=== PATIENT | female | born 1985 | race Hispanic/Latino ===

== ENCOUNTER 2018-02-19 00:26 | Emergency (ER) | payer BC ==
[2018-02-19 01:09] LABS: Urine Blood TRACE (NEG); Urine Glucose NEGATIVE (NEG); Urine Protein TRACE (NEG); Urine Specific Gravity 1.015 (1.005-1.030); Urine pH 8.5 (5.0-7.0)
[2018-02-19 01:09] LABS: Urine Specific Gravity 1.015 (1.005-1.030)
[2018-02-19 01:50] LABS: Absolute Lymphocytes (CBC) 3.5 K/uL (0.7-4.9); Absolute Monocytes 0.7 K/uL (0.1-1.3); Absolute Neutrophil 5.8 K/uL (1.8-8.0); Basophils % 0.7 % (0-1.3); Eosinophils % 0.5 % (0-4.4); Hematocrit 36.7 % (36.0-45.0); Lymphocytes % 34.4 % (15.3-44.8); MCH 33.2 pg (27.0-35.0); MCV 96.3 fL (80-100); MPV 7.5 fL (7.6-11.3); Monocytes % 6.6 % (3.3-12.3); RBC Red Blood Cell Count 3.81 M/uL (3.86-4.86)
[2018-02-19 02:05] LABS: ALT/SGPT 31 U/L (12-78); AST/SGOT 16 U/L (15-37); Albumin 3.8 g/dL (3.4-5.0); Alkaline Phosphatase 58 U/L (45-117); BUN Blood Urea Nitrogen 10 mg/dL (7-18); Bicarbonate 20 mmol/L (21-32); Bilirubin Direct < 0.1 mg/dL (0-0.2); Bilirubin Total 0.2 mg/dL (0.2-1.0); Glucose Level 117 mg/dL (74-106); Potassium 3.5 mmol/L (3.5-5.1); Protein, Total 7.3 g/dL (6.4-8.2); Sodium Level 141 mmol/L (136-145)
--- NOTE | 2018-02-19 02:23 | EDPHYS ---
Physician Documentation [facility] Name: Cristian Estrada Age: 33 yrs Sex: Female : 1985 Arrival Date: 02/19/2018 Time: 00:27 Bed 16 Private MD: Silvano Whitfield R ED Physician Terell Brown HPI: 02/19 02:10 This 33 yrs old Female presents to ER via Ambulatory with complaints of Chest pm1 Pain, Headache. 02:10 The patient or guardian reports chest pain that is located primarily in the mid-sternal pm1 area. The pain does not radiate. Associated signs and symptoms: Pertinent positives: headache, Pertinent negatives: abdominal pain, cough, nausea, shortness of breath, vomiting. The chest pain is described as aching. Duration: The patient or guardian reports a single episode, that lasted 7 hour(s). Modifying factors: The symptoms are alleviated by nothing. the symptoms are aggravated by cough, deep breath, palpation of area. The patient has not experienced similar symptoms in the past. The patient has not recently seen a physician, the patient's primary care provider is Dr. Whitfield. Patient with headache and chest pain on and off for the past 3 months. Chest pain today that has been going on for 7 hours. Patient's headache frontal location and is the same as her prior headaches. No fever. 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 - Social history:: Smoking status: Patient/guardian denies using tobacco. - Ebola Screening: : No symptoms or risks identified at this time. ROS: 02:10 Constitutional: Negative for fever, chills, and weight loss, Eyes: Negative for injury, pm1 pain, redness, and discharge, ENT: Negative for injury, pain, and discharge, Neck: Negative for injury, pain, and swelling, Respiratory: Negative for shortness of breath, cough, wheezing, and pleuritic chest pain. 02:10 Abdomen/GI: Negative for abdominal pain, nausea, vomiting, diarrhea, and constipation, Back: Negative for injury and pain, : Negative for injury, bleeding, discharge, and swelling, MS/Extremity: Negative for injury and deformity, Skin: Negative for injury, rash, and discoloration. 02:10 Cardiovascular: Positive for chest pain, Negative for edema, palpitations. 02:10 Neuro: Positive for headache. Exam: 02:10 Constitutional: This is a well developed, well nourished patient who is awake, alert, pm1 and in no acute distress. Head/Face: Normocephalic, atraumatic. Eyes: Pupils equal round and reactive to light, extra-ocular motions intact. Lids and lashes normal. Conjunctiva and sclera are non-icteric and not injected. Cornea within normal limits. Periorbital areas with no swelling, redness, or edema. ENT: Nares patent. No nasal discharge, no septal abnormalities noted. Tympanic membranes are normal and external auditory canals are clear. Oropharynx with no redness, swelling, or masses, exudates, or evidence of obstruction, uvula midline. Mucous membranes moist. Neck: Trachea midline, no thyromegaly or masses palpated, and no cervical lymphadenopathy. Supple, full range of motion without nuchal rigidity, or vertebral point tenderness. No Meningismus. Chest/axilla: Normal chest wall appearance and motion. Nontender with no deformity. No lesions are appreciated. Cardiovascular: Regular rate and rhythm with a normal S1 and S2. No gallops, murmurs, or rubs. Normal PMI, no JVD. No pulse deficits. Respiratory: Lungs have equal breath sounds bilaterally, clear to auscultation and percussion. No rales, rhonchi or wheezes noted. No increased work of breathing, no retractions or nasal flaring. Abdomen/GI: Soft, non-tender, with normal bowel sounds. No distension or tympany. No guarding or rebound. No evidence of tenderness throughout. Back: No spinal tenderness. No costovertebral tenderness. Full range of motion. Skin: Warm, dry with normal turgor. Normal color with no rashes, no lesions, and no evidence of cellulitis. MS/ Extremity: Pulses equal, no cyanosis. Neurovascular intact. Full, normal range of motion. 02:10 Neuro: Orientation: is normal, Mentation: is normal, Memory: is normal, Cranial nerves: CN II- XII are normal as tested, Cerebellar function: normal finger to nose testing, Motor: moves all fours, strength is normal, strength is 5/5 in all extremities, Sensation: is normal, no obvious gross deficits, Gait: is steady, at a normal pace, without difficulty. Vital Signs: 00:42 BP 123 / 82; Pulse 106; Resp 16; Temp 99.0(O); Pulse Ox 100% on R/A; Weight 72.57 kg ak1 (R); Height 5 ft. 2 in. (157.48 cm) (R); Pain 6/10; 01:40 BP 131 / 71; Pulse 86; Resp 16; Temp 99.0; Pulse Ox 100% on R/A; ak1 02:24 BP 114 / 72; Pulse 87; Resp 16; Temp 99.0; Pulse Ox 100% on R/A; Pain 3/10; ak1 00:42 Body Mass Index 29.26 (72.57 kg, 157.48 cm) ak1 MDM: 00:53 Patient medically screened. pm1 02:21 Data reviewed: vital signs. Data interpreted: Pulse oximetry: on room air is 100 %. pm1 Interpretation: normal. Counseling: I had a detailed discussion with the patient and/or guardian regarding: the historical points, exam findings, and any diagnostic results supporting the discharge/admit diagnosis, lab results, radiology results, the need for outpatient follow up, to return to the emergency department if symptoms worsen or persist or if there are any questions or concerns that arise at home. 02/19 00:45 Order name: Urine Dipstick--Ancillary (enter results); Complete Time: 02: oe 02/19 00:46 Order name: Urine --Ancillary (enter results); Complete Time: 02: oe 02/19 01:29 Order name: Basic Metabolic Panel; Complete Time: 02:08 pm02/19 01:29 Order name: CBC with Diff; Complete Time: 02:08 pm02/19 01:29 Order name: LFT's; Complete Time: 02:08 pm02/19 01:29 Order name: Troponin (emerg Dept Use Only); Complete Time: 02:08 pm02/19 01:29 Order name: XRAY Chest (1 view) pm1 02/19 01:29 Order name: EKG; Complete Time: 01:30 pm1 02/19 01:29 Order name: Cardiac monitoring; Complete Time: 01:32 pm02/19 01:29 Order name: EKG - Nurse/Tech; Complete Time: 01:39 pm1 02/19 01:29 Order name: IV Saline Lock; Complete Time: 01:39 pm02/19 01:29 Order name: Labs collected and sent; Complete Time: :39 pm1 02/19 01:29 Order name: O2 Per Protocol; Complete Time: :32 pm02/19 01:29 Order name: O2 Sat Monitoring; Complete Time: :32 pm1 Administered Medications: No medications were administered Disposition: 15:34 Co-signature as Attending Physician, Terell Brown MD I agree with the assessment and vicki plan of care. Disposition: 02/19/18 02:22 Discharged to Home. Impression: Chest pain, unspecified, Headache. - Condition is Stable. - Discharge Instructions: Nonspecific Chest Pain, General Headache Without Cause. - Medication Reconciliation Form, Thank You Letter form. - Follow up: Emergency Department; When: As needed; Reason: Worsening of condition. Follow up: Silvano Whitfield MD; When: 2 - 3 days; Reason: Recheck today's complaints, Continuance of care, Re-evaluation by your physician. - Problem is new. - Symptoms have improved. Signatures: Dispatcher [employer] EDMS Terell Brown MD MD cha Krenek, Amber, RN RN ak1 Len Torres, BRANCH OFFICE MANAGER BRANCH OFFICE MANAGER pm1 Corrections: (The following items were deleted from the chart) : 01:29 Urine Dipstick-Ancillary ordered. pm1 pm1 02:29 02:22 02/19/2018 02:22 Discharged to Home. Impression: Chest pain, unspecified; ak1 Headache. Condition is Stable. Forms are Medication Reconciliation Form, Thank You Letter, Antibiotic Education, Prescription Opioid Use. Follow up: Emergency Department; When: As needed; Reason: Worsening of condition. Follow up: Silvano Whitfield; When: 2 - 3 days; Reason: Recheck today's complaints, Continuance of care, Re-evaluation by your physician. Problem is new. Symptoms have improved. pm1
--- NOTE | 2018-02-19 02:23 | ER ---
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 pt currently taking doxycycline s/p LEEP procedure. Transition of care: patient was not received from another setting of care. Onset of symptoms is unknown. Risk Assessment: Do you want to hurt yourself or someone else? Patient reports no desire to harm self or others. Initial Sepsis Screen: Does the patient meet any 2 criteria? No. Patient's initial sepsis screen is negative. Does the patient have a suspected source of infection? No. Patient's initial sepsis screen is negative. Care prior to arrival: None. 00:40 Method Of Arrival: Ambulatory ak1 00:40 Acuity: HALLEY 4 ak1 Triage Assessment: 00:42 General: Appears in no apparent distress. uncomfortable, Behavior is cooperative, ak1 anxious. Pain: Complains of pain in headache, chest pain. EENT: No signs and/or symptoms were reported regarding the EENT system. Neuro: Level of Consciousness is awake, alert, obeys commands, Oriented to person, place, time, situation, Cannon Crewmember are equal bilaterally Moves all extremities. Gait is steady, Speech is normal, Facial symmetry appears normal, Pupils are PERRLA. 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 Respiratory: No deficits noted. GI: Abdomen is round Bowel sounds present X 4 quads. Abd is soft and non tender X 4 quads. : No signs and/or symptoms were reported regarding the genitourinary system. Derm: No signs and/or symptoms reported regarding the dermatologic system. Musculoskeletal: No signs and/or symptoms reported regarding the musculoskeletal system. 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 - Social history:: Smoking status: Patient/guardian denies using tobacco. - Ebola Screening: : No symptoms or risks identified at this time. Screenin:45 Abuse screen: Denies threats or abuse. Denies injuries from another. Nutritional ak1 screening: No deficits noted. Tuberculosis screening: No symptoms or risk factors identified. Fall Risk None identified. Assessment: 00:45 Pain: Pain does not radiate. 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 ak1 00:45 Reassessment: Patient appears in no apparent distress at this time. No changes from ak1 previously documented assessment. Patient is alert, oriented x 3, equal unlabored respirations, skin warm/dry/pink. see triage assessment. 02:06 Reassessment: Patient appears in no apparent distress at this time. No changes from ak1 previously documented assessment. Patient and/or family updated on plan of care and expected duration. Pain level reassessed. Patient is alert, oriented x 3, equal unlabored respirations, skin warm/dry/pink. Vital Signs: 00:42 BP 123 / 82; Pulse 106; Resp 16; Temp 99.0(O); Pulse Ox 100% on R/A; Weight 72.57 kg ak1 (R); Height 5 ft. 2 in. (157.48 cm) (R); Pain 6/10; 01:40 BP 131 / 71; Pulse 86; Resp 16; Temp 99.0; Pulse Ox 100% on R/A; ak1 02:24 BP 114 / 72; Pulse 87; Resp 16; Temp 99.0; Pulse Ox 100% on R/A; Pain 3/10; ak1 00:42 Body Mass Index 29.26 (72.57 kg, 157.48 cm) ak1 ED Course: 00:27 Patient arrived in ED. es 00:32 Silvano Whitfield MD is Private Physician. es 00:39 Yumi Jones, KIM is Primary Nurse. ak1 00:41 Len Torres NP is PHCP. pm1 00:41 Terell Brown MD is Attending Physician. pm1 00:41 Triage completed. ak1 00:42 Arm band placed on Patient placed in an exam room, on a stretcher, on pulse oximetry, ak1 Patient notified of wait time. 00:45 Patient has correct armband on for positive identification. Bed in low position. Call ak1 light in reach. Side rails up X2. Adult w/ patient. Pulse ox on. NIBP on. 00:45 Patient maintains SpO2 saturation greater than 95% on room air. ak1 00:45 Urine collected: clean catch specimen, cloudy. ak1 01:40 No provider procedures requiring assistance completed. Inserted saline lock: 20 gauge ak1 in left antecubital area, using aseptic technique. Blood collected. 01:41 Initial lab(s) drawn, by me, sent to lab. EKG done, by ED staff, reviewed by Len Torres NP. 01:45 X-ray completed. Portable x-ray completed in exam room. Patient tolerated procedure kw well. 01:46 XRAY Chest (1 view) In Process Unspecified. EDMS 02:21 Silvano Whitfield MD is Referral Physician. pm1 02:25 IV discontinued, intact, bleeding controlled, No redness/swelling at site. Pressure ak1 dressing applied. Administered Medications: No medications were administered Outcome: 02:22 Discharge ordered by . pm1 02:25 Discharged to home ambulatory, with friend. ak1 02:25 Condition: good 02:25 Discharge instructions given to patient, Instructed on discharge instructions, follow up and referral plans. Demonstrated understanding of instructions, follow-up care. 02:29 Patient left the ED. ak1 Signatures: Dispatcher [employer] Jovana Moss Kimberlee kw Krenek, Amber, RN RN Len Rosas, TIMOTHY SERVICE ENGINE REPAIRER pm1
--- NOTE | 2018-02-19 06:36 | EKG ---
Test Date: 2018-02-19 Test Time: 01:36:56 Mail Carrier: AMILCAR MEASUREMENT RESULTS: Intervals: Rate: 80 DE: 142 QRSD: 76 QT: 354 QTc: 408 [place]: P: 49 DE: 142 QRS: 27 T: 31 INTERPRETIVE STATEMENTS: Normal sinus rhythm with sinus arrhythmia Normal ECG Compared to ECG 09/08/2014 02:41:26 No significant changes Electronically Signed On 02-19-18 06:35:52 CDT by Per Pabon
--- NOTE | 2018-02-19 08:34 | RAD REPORT ---
EXAM DESCRIPTION: RAD - Chest Single View - 02/19/2018 1:46 am CLINICAL HISTORY: CHEST PAIN History of smoking COMPARISON: CHEST PA AND LAT 2 VIEW dated 09/08/2014 FINDINGS: Portable technique limits examination quality. The lungs are grossly clear. The heart is normal in size. No displaced fractures. IMPRESSION: No acute intrathoracic process suspected.
== END 2018-02-19 02:29 | disposition home or self-care (01) ==
LOC: ER 00:26
DX: R07.9 Chest pain, unspecified (principal); R51 Headache
CPT/HCPCS: 36415; 71045; 80048; 80076; 81003; 81025; 84484; 85025; 93005; 99284

== ENCOUNTER 2018-10-30 18:32 | Emergency (ER) | payer BC ==
--- OUTSIDE RECORDS SUMMARY | 2018-10-30 18:35 | XMS REPORT | Clinical Summary ---
:1985 Author Organization [facility] Address [address] [place] [id number] Care Team Providers Name Role Phone Asked, No Pcp Primary Care Provider Unavailable Allergies No Known Allergies Medications Medication Sig Dispensed Refills Start Date End Date Status ALPRAZolam (XANAX) Take 1 tablet 10 tablet 0 02/21/2018 03/03/2018 0.25 MG tablet (0.25 mg total) by mouth 3 (three) times a day as needed for anxiety for up to 10 days. omeprazole Take 1 capsule 30 capsule 0 02/21/2018 03/23/2018 (PriLOSEC) 20 MG (20 mg total) by capsule mouth daily for 30 days. Active Problems Not on file Encounters Date Type Specialty Care Team Description 02/27/2018 Intake Access N/A 02/21/2018 - Emergency Emergency Medicine RehrerAlonso Hypokalemia ( Primary Dx); 02/22/2018 DO Jarrett Paresthesia; Anxiety after 10/29/2017 Social History Tobacco Use Types Packs/Day Years Used Date Current Some Day Smoker Smokeless Tobacco: Never Used Comments: occassionally Alcohol Use Drinks/Week oz/Week Comments No occassionally Sex Assigned at Date Recorded Not on file Job Start Date Occupation Industry Not on file Not on file Not on file Travel History Travel Start Travel End No recent travel history available. Last Filed Vital Signs Vital Sign Reading Time Taken Blood Pressure 129/81 02/22/2018 3:39 AM CDT Pulse 98 02/22/2018 3:39 AM CDT Temperature 36.7 C (98 F) 02/22/2018 3:39 AM CDT Respiratory Rate 17 02/22/2018 3:39 AM CDT Oxygen Saturation 96% 02/22/2018 3:39 AM CDT Inhaled Oxygen Concentration - - Weight - - Height 157.5 cm (5' 2") 02/21/2018 6:45 PM CDT Body Mass Index - - Plan of Treatment Not on file Procedures Procedure Name Priority Date/Time Associated Comments Diagnosis ZZESTIMATED GFR STAT 02/21/2018 7:44 Results for this PM CDT procedure are in the results section. ALCOHOL LEVEL, BLOOD STAT 02/21/2018 7:44 Results for this PM CDT procedure are in the results section. THYROID STIMULATING STAT 02/21/2018 7:44 Results for this HORMONE PM CDT procedure are in the results section. T4, FREE STAT 02/21/2018 7:44 Results for this PM CDT procedure are in the results section. D-DIMER STAT 02/21/2018 7:44 Results for this PM CDT procedure are in the results section. B NATRIURETIC PEPTIDE STAT 02/21/2018 7:44 Results for this PM CDT procedure are in the results section. TROPONIN STAT 02/21/2018 7:44 Results for this PM CDT procedure are in the results section. CREATINE KINASE, TOTAL STAT 02/21/2018 7:44 Results for this (CPK) PM CDT procedure are in the results section. MAGNESIUM LEVEL STAT 02/21/2018 7:44 Results for this PM CDT procedure are in the results section. PHOSPHORUS LEVEL STAT 02/21/2018 7:44 Results for this PM CDT procedure are in the results section. BASIC METABOLIC PANEL STAT 02/21/2018 7:44 Results for this PM CDT procedure are in the results section. HC COMPLETE BLD COUNT STAT 02/21/2018 7:44 Results for this W/AUTO DIFF PM CDT procedure are in the results section. ECG ED PRELIMINARY Routine 02/21/2018 7:23 Results for this INTERPRETATION PM CDT procedure are in the results section. URINE DRUGS OF ABUSE STAT 02/21/2018 7:12 Results for this SCREEN PM CDT procedure are in the results section. HCG QUALITATIVE, URINE Routine 02/21/2018 7:12 Results for this SCREEN PM CDT procedure are in the results section. URINALYSIS SCREEN AND Routine 02/21/2018 7:12 Results for this MICROSCOPY, WITH REFLEX PM CDT procedure are in TO CULTURE the results section. URINE CULTURE Routine 02/21/2018 7:12 Results for this PM CDT procedure are in the results section. ECG 12-LEAD Routine 02/21/2018 6:49 Results for this PM CDT procedure are in the results section. after 10/29/2017 Results Estimated GFR (02/21/2018 7:44 PM CDT) GFR Non Af Amer >90 mL/min/1.73 m2 [facility] DEPARTMENT OF PATHOLOGY AND [facility] MEDICINE GFR Af Amer >90 mL/min/1.73 m2 [facility] DEPARTMENT OF Comment: PATHOLOGY AND GENOMIC Chronic kidney disease: <60 mL/min/1.73m2 MEDICINE Kidney failure: <15 mL/min/1.73m2 The estimated GFR is calculated from the IDMS-traceable Modification of Diet in Renal Disease Equation. The accuracy of the calculation is poor when the creatinine is normal. Calculated values >90 mL/min/1.73m2 are not reported. This equation has not been validated in children (<18 years), women, the elderly (>70 years), or ethnic groups other than Caucasians and Americans. Specimen Plasma specimen Performing Organization Address City/State/[facility] Phone Number [facility] DEPARTMENT OF PATHOLOGY AND [address] [place] [address] Troponin (02/21/2018 7:44 PM CDT) Troponin <0.30 0.00 - 0.30 ng/mL [facility] DEPARTMENT OF PATHOLOGY Comment: AND GENOMIC MEDICINE 0.30 - 1.49 ng/mlMay indicate increased risk of acute coronary syndrome. >=1.5 ng/mlConsistent with acute myocardial infarction. The diagnostic value of a single normal or non-diagnostic result is questionable.Serial samples at 2-6 hour intervals are required to rule out acute myocardial injury. Specimen Plasma specimen Performing Organization Address City/[facility] Phone Number [facility] DEPARTMENT OF PATHOLOGY AND [address] [place] [phone] [facility] D-dimer (02/21/2018 7:44 PM CDT) D-dimer <0.27 0.00 - 0.40 ug/mL FEU [facility] DEPARTMENT OF Comment: PATHOLOGY AND GENOMIC Units are ug/ml Fibrinogen Equivalent Unit. MEDICINE When combined with low clinical probability, D-dimer results of less than 0.5 ug/ml FEU have a good negativepredictive value in excluding PE or DVT. For D-dimer results greater than 0.5ug/ml FEU further testing is indicated if PE or DVT is suspectedclinically. Elevated D-dimer results have been reported in DVT, PE, and DIC cases and may indicate the presence of a clot. D-dimer results may be elevated due to old age, , inflammatory diseases, trauma, post-operative states, sepsis, and malignancies. Specimen Blood Performing Organization Address City/State/Zipcode Phone Number [facility] DEPARTMENT OF PATHOLOGY AND [address] [place] [address] GENOMIC MEDICINE CBC with platelet and differential (02/21/2018 7:44 PM CDT) WBC 8.71 4.50 - 11.00 k/uL [facility] DEPARTMENT OF PATHOLOGY AND GENOMIC MEDICINE RBC 3.81 (L) 4.20 - 5.50 m/uL [facility] DEPARTMENT OF PATHOLOGY AND GENOMIC MEDICINE HGB 12.8 12.0 - 16.0 g/dL [facility] DEPARTMENT OF PATHOLOGY AND GENOMIC MEDICINE HCT 35.9 (L) 37.0 - 47.0 % [facility] DEPARTMENT OF PATHOLOGY AND GENOMIC MEDICINE MCV 94.2 82.0 - 100.0 fL [facility] DEPARTMENT OF PATHOLOGY AND GENOMIC MEDICINE MCH 33.6 27.0 - 34.0 pg [facility] DEPARTMENT OF PATHOLOGY AND GENOMIC MEDICINE MCHC 35.7 31.0 - 37.0 g/dL [facility] DEPARTMENT OF PATHOLOGY AND GENOMIC MEDICINE RDW - SD 40.8 37.0 - 55.0 fL [facility] DEPARTMENT OF PATHOLOGY AND GENOMIC MEDICINE MPV 9.3 8.8 - 13.2 fL [facility] DEPARTMENT OF PATHOLOGY AND GENOMIC MEDICINE Platelet count 355 150 - 400 k/uL [facility] DEPARTMENT OF PATHOLOGY AND GENOMIC MEDICINE Nucleated RBC 0.00 /100 WBC [facility] DEPARTMENT OF PATHOLOGY AND GENOMIC MEDICINE Neutrophils 58.2 39.0 - 69.0 % [facility] DEPARTMENT OF PATHOLOGY AND GENOMIC MEDICINE Lymphocytes 31.7 25.0 - 45.0 % [facility] DEPARTMENT OF PATHOLOGY AND GENOMIC MEDICINE Monocytes 8.3 0.0 - 10.0 % [facility] DEPARTMENT OF PATHOLOGY AND GENOMIC MEDICINE Eosinophils 0.7 0.0 - 5.0 % [facility] DEPARTMENT OF PATHOLOGY AND GENOMIC MEDICINE Basophils 0.6 0.0 - 1.0 % [facility] DEPARTMENT OF PATHOLOGY AND GENOMIC MEDICINE Immature granulocytes 0.5Comment: 0.0 - 1.0 % [facility] DEPARTMENT OF "Immature PATHOLOGY AND GENOMIC granulocytes" MEDICINE (promyelocytes, myelocytes, metamyelocytes) Specimen Blood Performing Organization Address City/State/Zipcode Phone Number [facility] DEPARTMENT OF PATHOLOGY AND [address] [place], [place] [phone] [place] [address] Thyroid stimulating hormone (02/21/2018 7:44 PM CDT) TSH 1.09 0.27 - 4.20 uIU/mL [facility] DEPARTMENT OF PATHOLOGY AND GENOMIC MEDICINE Specimen Plasma specimen Performing Organization Address [facility] Phone Number [facility] DEPARTMENT OF PATHOLOGY AND [address] [place] [address] T4, free (02/21/2018 7:44 PM CDT) T4, free 1.3 0.9 - 1.7 ng/dL [facility] DEPARTMENT OF PATHOLOGY AND GENOMIC MEDICINE Specimen Plasma specimen Performing Organization Address City/[facility] Phone Number [facility] DEPARTMENT OF PATHOLOGY AND [address] [place] [address] Phosphorus level (02/21/2018 7:44 PM CDT) Phosphorus 2.4 2.4 - 4.5 mg/dL [facility] DEPARTMENT OF PATHOLOGY AND GENOMIC MEDICINE Specimen Plasma specimen Performing Organization Address [facility] Phone Number [facility] DEPARTMENT OF PATHOLOGY AND [address] [place] [address] B natriuretic peptide (02/21/2018 7:44 PM CDT) BNP 11 0 - 100 pg/mL [facility] DEPARTMENT OF PATHOLOGY AND GENOMIC MEDICINE Specimen Blood Performing Organization Address [facility] Phone Number [facility] DEPARTMENT OF PATHOLOGY AND [address] [place] [address] Magnesium level (02/21/2018 7:44 PM CDT) Magnesium 2.1 1.6 - 2.6 mg/dL [facility] DEPARTMENT OF PATHOLOGY AND GENOMIC MEDICINE Specimen Plasma specimen Performing Organization Address [facility] Phone Number [facility] DEPARTMENT OF PATHOLOGY AND [address] [place] [address] Creatine kinase, total (CPK) (02/21/2018 7:44 PM CDT) Creatine kinase 142 26 - 192 U/L [facility] DEPARTMENT OF PATHOLOGY AND GENOMIC MEDICINE Specimen Plasma specimen Performing Organization Address [facility] Phone Number [facility] DEPARTMENT OF PATHOLOGY AND [address] [place] [address] Alcohol level, blood (02/21/2018 7:44 PM CDT) Alcohol None Detected mg/dL [facility] DEPARTMENT OF PATHOLOGY Comment: AND GENOMIC MEDICINE Normal None Detected Legal Intoxication in [place]80 mg/dL (0.08%) - Whole Blood Toxic Mfqkntthnswcw539 mg/dL (0.2%) Potentially Tibca722 - 500 mg/dL (0.35 - 0.5%) Alcohol percent None Detected % [facility] DEPARTMENT OF PATHOLOGY AND GENOMIC MEDICINE Specimen Plasma specimen Performing Organization Address [facility] Phone Number [facility] DEPARTMENT OF PATHOLOGY AND [address] [place] [address] GENOMIC MEDICINE Basic metabolic panel (02/21/2018 7:44 PM CDT) Sodium 142 135 - 148 mEq/L [facility] DEPARTMENT OF PATHOLOGY AND GENOMIC MEDICINE Potassium 3.1 (L) 3.5 - 5.0 mEq/L [facility] DEPARTMENT OF PATHOLOGY AND GENOMIC MEDICINE Chloride 106 98 - 112 mEq/L [facility] DEPARTMENT OF PATHOLOGY AND GENOMIC MEDICINE CO2 21 (L) 24 - 31 mEq/L [facility] DEPARTMENT OF PATHOLOGY AND GENOMIC MEDICINE Anion gap 15@ANIO 7 - 15 mEq/L [facility] DEPARTMENT OF PATHOLOGY AND GENOMIC MEDICINE BUN 6 6 - 20 mg/dL [facility] DEPARTMENT OF PATHOLOGY AND GENOMIC MEDICINE Creatinine 0.7 0.5 - 0.9 mg/dL [facility] DEPARTMENT OF PATHOLOGY AND GENOMIC MEDICINE Glucose 99 65 - 99 mg/dL [facility] DEPARTMENT OF PATHOLOGY AND GENOMIC MEDICINE Calcium 9.4 8.3 - 10.2 mg/dL [facility] DEPARTMENT OF PATHOLOGY AND GENOMIC MEDICINE Specimen Plasma specimen Performing Organization Address [facility] Phone Number [facility] DEPARTMENT OF PATHOLOGY AND [address] [place], [place] [phone] GENOMIC MEDICINE ECG ED Preliminary Interpretation - NOT AN ORDER (02/21/2018 7:23 PM CDT) Narrative Performed At Alonso Nascimento DO 02/22/2018 11:56 PM ECG ED Preliminary Interpretation - Not an Order Performed by: ALONSO NASCIMENTO Authorized by: ALONSO NASCIMENTO ECG reviewed by ED Physician in the absence of a pathology laboratory aides teacher: yes Interpretation: Interpretation: normal Rate: ECG rate:80 ECG rate assessment: normal Rhythm: Rhythm: sinus rhythm QRS: QRS axis:Normal QRS intervals:Normal Conduction: Conduction: normal ST segments: ST segments:Normal T waves: T waves: normal Urinalysis screen and microscopy, with reflex to culture (02/21/2018 7:12 PM CDT) Specimen site Random void [facility] DEPARTMENT OF PATHOLOGY AND GENOMIC MEDICINE Color, UA Straw [facility] DEPARTMENT OF PATHOLOGY AND GENOMIC MEDICINE Appearance, UA Clear [facility] DEPARTMENT OF PATHOLOGY AND GENOMIC MEDICINE Specific gravity, UA 1.002 1.001 - 1.035 [facility] DEPARTMENT OF PATHOLOGY AND GENOMIC MEDICINE pH, UA 7.0 5.0 - 8.5 [facility] DEPARTMENT OF PATHOLOGY AND GENOMIC MEDICINE Protein, UA Negative Negative [facility] DEPARTMENT OF PATHOLOGY AND GENOMIC MEDICINE Glucose, UA Negative Negative [facility] DEPARTMENT OF PATHOLOGY AND GENOMIC MEDICINE Ketones, UA Negative Negative [facility] DEPARTMENT OF PATHOLOGY AND GENOMIC MEDICINE Bilirubin, UA Negative Negative [facility] DEPARTMENT OF PATHOLOGY AND GENOMIC MEDICINE Blood, UA Small (A) Negative [facility] DEPARTMENT OF PATHOLOGY AND GENOMIC MEDICINE Nitrite, UA Negative Negative [facility] DEPARTMENT OF PATHOLOGY AND GENOMIC MEDICINE Urobilinogen, UA <2.0 <2.0 [facility] DEPARTMENT OF PATHOLOGY AND GENOMIC MEDICINE Leukocyte esterase, UA Negative Negative [facility] DEPARTMENT OF PATHOLOGY AND GENOMIC MEDICINE Epithelial cells, UA 2 /HPF [facility] DEPARTMENT OF PATHOLOGY AND GENOMIC MEDICINE WBC, UA <1 0 - 4 /HPF [facility] DEPARTMENT OF PATHOLOGY AND GENOMIC MEDICINE RBC, UA 1 0 - 5 /HPF [facility] DEPARTMENT OF PATHOLOGY AND GENOMIC MEDICINE Bacteria, UA Few None seen [facility] DEPARTMENT OF PATHOLOGY AND GENOMIC MEDICINE Yeast, UA None seen [facility] DEPARTMENT OF PATHOLOGY AND GENOMIC MEDICINE Yeast with pseudohyphae, UA None seen [facility] DEPARTMENT OF PATHOLOGY AND GENOMIC MEDICINE Specimen Urine Performing Organization Address City/[facility] Phone Number [facility] DEPARTMENT OF PATHOLOGY AND [address] [place] [address] [facility] hCG qualitative, urine screen (02/21/2018 7:12 PM CDT) hCG qualitative, urine NegativeComment: [facility] DEPARTMENT OF Sensitivity of HCG test: 25 PATHOLOGY AND GENOMIC mIU/mL MEDICINE Specimen Urine Performing Organization Address City/[facility]/Zipcode Phone Number [facility] DEPARTMENT OF PATHOLOGY AND [address] [place] [phone] [facility] Urine drugs of abuse screen (02/21/2018 7:12 PM CDT) Amphetamine screen, urine Negative [facility] DEPARTMENT OF PATHOLOGY AND GENOMIC MEDICINE Barbiturate screen, urine Negative [facility] DEPARTMENT OF PATHOLOGY AND GENOMIC MEDICINE Benzodiazepine screen, Negative [facility] DEPARTMENT OF urine PATHOLOGY AND GENOMIC MEDICINE Cannabinoid screen, urine Negative [facility] DEPARTMENT OF PATHOLOGY AND GENOMIC MEDICINE Cocaine screen, urine Negative [facility] DEPARTMENT OF PATHOLOGY AND GENOMIC MEDICINE Methadone metabolite Negative [facility] DEPARTMENT OF (EDDP), urine PATHOLOGY AND GENOMIC MEDICINE Opiates screen, urine Negative [facility] DEPARTMENT OF PATHOLOGY AND GENOMIC MEDICINE Oxycodone screen, urine Negative [facility] DEPARTMENT OF PATHOLOGY AND GENOMIC MEDICINE Phencyclidine screen, urine Negative [facility] DEPARTMENT OF PATHOLOGY AND GENOMIC MEDICINE Tricyclic screen, urine Negative [facility] DEPARTMENT OF Comment: PATHOLOGY AND GENOMIC Drug screen minimum concentration of detectability MEDICINE [id number] ng/mL Barbiturates 200 ng/mL Ofjalnydnpnpasx917 ng/mL Fqwbkyg335 ng/mL Yxyovzzym780 ng/mL Syfqoyj078 ng/mL Wktzzwlla238 ng/mL Phencyclidine 25 ng/mL Rajjdhvnefwb99 ng/mL Fyyanntddn5953 ng/mL Negative test results indicates presumptive evidence of lack of clinically significant drug concentration in this urine specimen. Positive test results are presumptive evidence of clinically significant drug concentration in this urine specimen. Testing performed for medical purposes only. Specimen Urine Performing Organization Address [facility] Phone Number [facility] DEPARTMENT OF PATHOLOGY AND [address] [place] [address] MEDICINE Urine culture (02/21/2018 7:12 PM CDT) Urine culture SEE COMMENTComment: Bacteriuria [facility] DEPARTMENT OF PATHOLOGY screen negative. AND GENOMIC MEDICINE Performing Organization Address [facility] Phone Number [facility] DEPARTMENT OF PATHOLOGY AND [address] [place], [place] [phone] [facility] ECG 12 lead (02/21/2018 6:49 PM CDT) Ventricular rate 80 [facility] Atrial rate 80 [facility] TX interval 122 [facility] QRSD interval 72 [facility] QT interval 364 [facility] QTC interval 419 [facility] MUSE P axis 1 37 [facility] MUSE QRS axis 1 36 [facility] T wave axis 13 [facility] MUSE EKG impression Normal sinus rhythm-Normal ECG-No previous [facility] MUSE ECGs available- Performing Organization Address [facility] Phone Number [facility] MUSE [address] [place] [address] after 10/29/2017 Insurance Payer Benefit Plan / Group Subscriber ID Type Phone Address BCBS BCBS CHOICE PPO/[employer] PPO xxxxxxxxxxxxxxx PPO Advance Directives Patient has advance care planning documents on file. For more information, please contact:Torres Borden[address] [place] [id number]
[2018-10-30] MEDS ORDERED: NA CHLORIDE 0.9% 1,000 ML ONE (19:32)
[2018-10-30 19:46] LABS: Urine Specific Gravity >1.030 (1.005-1.030)
[2018-10-30 19:49] LABS: Urine Appearance CLEAR; Urine Blood TRACE (NEG); Urine Color DK YELLOW; Urine Glucose NEGATIVE (NEG); Urine Protein TRACE (NEG); Urine Specific Gravity >=1.030 (1.005-1.030); Urine Urobilinogen 0.2 mg/dL (0.2-1.0)
[2018-10-30 19:55] LABS: Urine Bilirubin NEGATIVE (NEG); Urine Microscopic Reflex ORDER UMIC
[2018-10-30 19:58] LABS: Absolute Lymphocytes (CBC) 1.2 K/uL (0.7-4.9); Absolute Monocytes 0.7 K/uL (0.1-1.3); Basophils % 0.2 % (0-1.3); Eosinophils % 1.1 % (0-4.4); Hematocrit 41.8 % (36.0-45.0); Lymphocytes % 8.4 % (15.3-44.8); MPV 7.7 fL (7.6-11.3); Monocytes % 5.2 % (3.3-12.3); RBC Red Blood Cell Count 4.35 M/uL (3.86-4.86)
[2018-10-30 20:03] LABS: Albumin 4.4 g/dL (3.4-5.0); Bilirubin Direct 0.3 mg/dL (0-0.2); Potassium 3.7 mmol/L (3.5-5.1); Protein, Total 7.9 g/dL (6.4-8.2)
[2018-10-30 20:04] LABS: Urine Bacteria 20-50 /HPF (<20); Urine RBC <5 /HPF (NONE SEEN)
[2018-10-30 20:05] LABS: Urine Culture Reflex Order REFLEXED; Urine Mucus SLIGHT /HPF (NONE SEEN)
--- NOTE | 2018-10-30 20:36 | RAD REPORT ---
EXAM DESCRIPTION: CTAbdomen Pelvis W Contrast - 10/30/2018 8:21 pm CLINICAL HISTORY: Abdominal pain. ABD PAIN COMPARISON: No comparisons TECHNIQUE: Biphasic CT imaging of the abdomen and pelvis was performed with 100 ml non-ionic IV cont rast. All CT scans are performed using dose optimization technique as appropriate and may include automated exposure control or mA/KV adjustment according to patient size. FINDINGS: The lung bases are clear. Cholecystectomy clips. The liver, spleen, pancreas, adrenal glands and kidneys are within normal limits. No bowel obstruction, free air, free fluid or abscess. The appendix is normal. No evidence of signi ficant lymphadenopathy. No suspicious bony findings. IMPRESSION: No acute intra-abdominal or pelvic finding.
[2018-10-30] MEDS ORDERED: MORPHINE 4 MG/ML SYR ONE ×2 (20:42→23:47)
[2018-10-30] MEDS ORDERED: ONDANSETRON 4 MG/2 ML VIAL ONE ×2 (20:43→23:47)
[2018-10-30] MEDS ORDERED: DICYCLOMINE HCL 20 MG/2 ML AMP IM ONE (21:10)
[2018-10-30 21:29] LABS: Blood Morphology Comment NOT SEEN (NOT SEEN); Platelet Estimate ADEQ; Urine White Blood Cell Casts OK
--- NOTE | 2018-10-30 23:37 | EDPHYS ---
Physician Documentation [facility] Name: Cristian Estrada Age: 33 yrs Sex: Female : 1985 Arrival Date: 10/30/2018 Time: 18:35 Bed 26 Private MD: Silvano Whitfield R ED Physician Herve Benavidez HPI: 10/30 23:34 This 33 yrs old Female presents to ER via Ambulatory with complaints of nh Abdominal Pain. 23:34 The patient presents with abdominal pain that is diffuse. Onset: The symptoms/episode nh began/occurred this morning. The symptoms do not radiate. Associated signs and symptoms: Pertinent positives: nausea and vomiting. The symptoms are described as crampy. Modifying factors: The symptoms are alleviated by nothing, the symptoms are aggravated by nothing. Severity of pain: At its worst the pain was moderate just prior to arrival. The patient has not experienced similar symptoms in the past. The patient has not recently seen a physician. 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 - Social history:: Smoking status: Patient/guardian denies using tobacco, Patient/guardian denies using alcohol. - Ebola Screening: : Patient negative for fever greater than or equal to 101.5 degrees Fahrenheit, and additional compatible Ebola Virus Disease symptoms Patient denies exposure to infectious person Patient denies travel to an Ebola-affected area in the 21 days before illness onset. ROS: 23:34 Constitutional: Negative for fever, chills, and weight loss, Eyes: Negative for injury, nh pain, redness, and discharge, ENT: Negative for injury, pain, and discharge, Neck: Negative for injury, pain, and swelling, Cardiovascular: Negative for chest pain, palpitations, and edema, Respiratory: Negative for shortness of breath, cough, wheezing, and pleuritic chest pain, Back: Negative for injury and pain, : Negative for injury, bleeding, discharge, and swelling, MS/Extremity: Negative for injury and deformity, Skin: Negative for injury, rash, and discoloration, Neuro: Negative for headache, weakness, numbness, tingling, and seizure. 23:34 Abdomen/GI: Positive for abdominal pain, nausea and vomiting. Exam: 23:34 Constitutional: This is a well developed, well nourished patient who is awake, alert, nh and in no acute distress. Head/Face: Normocephalic, atraumatic. Eyes: Pupils equal round and reactive to light, extra-ocular motions intact. Lids and lashes normal. Conjunctiva and sclera are non-icteric and not injected. Cornea within normal limits. Periorbital areas with no swelling, redness, or edema. ENT: Nares patent. No nasal discharge, no septal abnormalities noted. Tympanic membranes are normal and external auditory canals are clear. Oropharynx with no redness, swelling, or masses, exudates, or evidence of obstruction, uvula midline. Mucous membranes moist. Neck: Trachea midline, no thyromegaly or masses palpated, and no cervical lymphadenopathy. Supple, full range of motion without nuchal rigidity, or vertebral point tenderness. No Meningismus. Chest/axilla: Normal chest wall appearance and motion. Nontender with no deformity. No lesions are appreciated. Cardiovascular: Regular rate and rhythm with a normal S1 and S2. No gallops, murmurs, or rubs. Normal PMI, no JVD. No pulse deficits. Respiratory: Lungs have equal breath sounds bilaterally, clear to auscultation and percussion. No rales, rhonchi or wheezes noted. No increased work of breathing, no retractions or nasal flaring. Back: No spinal tenderness. No costovertebral tenderness. Full range of motion. Skin: Warm, dry with normal turgor. Normal color with no rashes, no lesions, and no evidence of cellulitis. MS/ Extremity: Pulses equal, no cyanosis. Neurovascular intact. Full, normal range of motion. Neuro: Awake and alert, GCS 15, oriented to person, place, time, and situation. Cranial nerves II-XII grossly intact. Motor strength 5/5 in all extremities. Sensory grossly intact. Cerebellar exam normal. Normal gait. Psych: Awake, alert, with orientation to person, place and time. Behavior, mood, and affect are within normal limits. 23:34 Abdomen/GI: Inspection: abdomen appears normal, Bowel sounds: normal, Palpation: moderate abdominal tenderness, in all quadrants. Vital Signs: 18:39 BP 110 / 73; Pulse 88; Resp 18; Temp 98.1(O); Pulse Ox 100% on R/A; Weight 90.72 kg; hj Height 5 ft. 2 in. (157.48 cm); Pain 8/10; 21:00 BP 115 / 78; Pulse 80; Resp 18; Pulse Ox 100% on R/A; Pain 8/10; mg2 22:58 BP 110 / 74; Pulse 82; Resp 18; Pulse Ox 100% on R/A; Pain 3/10; mg2 23:51 BP 112 / 78; Pulse 80; Resp 18; Pulse Ox 100% on R/A; Pain 2/10; mg2 18:39 Body Mass Index 36.58 (90.72 kg, 157.48 cm) hj MDM: 19:05 Patient medically screened. nh 23:34 Data reviewed: vital signs, nurses notes, lab test result(s), radiologic studies, I nh have discussed the patient's presentation/case with the attending Emergency Department Physician; and as a result, I will discharge patient. Counseling: I had a detailed discussion with the patient and/or guardian regarding: the historical points, exam findings, and any diagnostic results supporting the discharge/admit diagnosis, lab results, radiology results, the need for outpatient follow up, to return to the emergency department if symptoms worsen or persist or if there are any questions or concerns that arise at home. Response to treatment: the patient's symptoms have markedly improved after treatment. 10/30 19:14 Order name: Basic Metabolic Panel; Complete Time: 20:41 al 10/30 19:14 Order name: CBC with Diff al 10/30 19:14 Order name: Creatinine for Radiology; Complete Time: 20:41 al 10/30 19:14 Order name: Hepatic Function; Complete Time: 20:41 al 10/30 19:14 Order name: Lipase; Complete Time: 20:41 al 10/30 19:14 Order name: UA; Complete Time: 20:41 al 10/30 19:14 Order name: CT Abd/Pelvis - W/Contrast; Complete Time: 20:41 al 10/30 19:33 Order name: Urine --Ancillary (enter results); Complete Time: 20:41 [facility] 10/30 19:56 Order name: Urine Microscopic Only; Complete Time: 20:41 [facility] 10/30 20:07 Order name: Urine Culture [facility] 10/30 21:15 Order name: US Abdomen Limited al 10/30 21:29 Order name: CBC Smear Scan [facility] 10/30 19:14 Order name: IV Saline Lock; Complete Time: 19:37 al 10/30 19:14 Order name: Labs collected and sent; Complete Time: 19:37 al 10/30 19:14 Order name: Urine Test (obtain specimen); Complete Time: 19:37 al 10/30 21:02 Order name: EKG - Nurse/Tech; Complete Time: 21:05 mg2 Administered Medications: 19:37 Drug: NS 0.9% 1000 ml Route: IV; Rate: 1 bolus; Site: right antecubital; mg2 21:42 Follow up: Response: No adverse reaction; IV Status: Completed infusion mg2 20:36 Drug: morphine 4 mg Route: IVP; Site: right antecubital; mg2 21:42 Follow up: Response: No adverse reaction; Marked relief of symptoms mg2 20:36 Drug: Zofran 4 mg Route: IVP; Site: right antecubital; mg2 21:42 Follow up: Response: No adverse reaction; Marked relief of symptoms mg2 21:03 Drug: Bentyl 20 mg Route: IM; Site: right gluteus; mg2 21:42 Follow up: Response: No adverse reaction; Marked relief of symptoms mg2 23:40 Drug: Zofran 4 mg Route: IVP; Site: right antecubital; mg2 23:41 Follow up: Response: No adverse reaction; Medication administered at discharge. mg2 23:41 Drug: morphine 4 mg Route: IVP; Site: right antecubital; mg2 23:41 Follow up: Response: No adverse reaction; Medication administered at discharge. mg2 Disposition: 10/30/18 23:36 Discharged to Home. Impression: Abdominal and pelvic pain. - Condition is Stable. - Discharge Instructions: Abdominal Pain, Adult. - Prescriptions for Bentyl 20 mg Oral Tablet - take 1 tablet by ORAL route every 6 hours As needed; 20 tablet. Zofran 4 mg Oral Tablet - take 1 tablet by ORAL route every 12 hours As needed; 20 tablet. - Medication Reconciliation Form, Thank You Letter, Antibiotic Education, Prescription Opioid Use form. - Follow up: Private Physician; When: 2 - 3 days; Reason: Recheck today's complaints. - Problem is new. - Symptoms are unchanged. Signatures: Dispatcher [employer] EDPR Georgia Roche, FOOT GATHERER FOOT GATHERER al Jose Sams RN RN Ankit Johnston RN RN mg2 Corrections: (The following items were deleted from the chart) 19:46 19:33 URINE DIPSTICK--ANCILLARY+U.LAB.BRZ ordered. EDPR EDMS 23:52 23:36 10/30/2018 23:36 Discharged to Home. Impression: Abdominal and pelvic pain. mg2 Condition is Stable. Forms are Medication Reconciliation Form, Thank You Letter, Antibiotic Education, Prescription Opioid Use. Follow up: Private Physician; When: 2 - 3 days; Reason: Recheck today's complaints. Problem is new. Symptoms are unchanged. nh
--- NOTE | 2018-10-30 23:37 | ER ---
Nurse's Notes [facility] Name: Cristian Estrada Age: 33 yrs Sex: Female : 1985 Arrival Date: 10/30/2018 Time: 18:35 Bed 26 Private MD: Silvano Whitfield R Diagnosis: Abdominal and pelvic pain Presentation: 10/30 18:37 Presenting complaint: Patient states: i got this stomach pain, epigastric area, all hj day; reports nausea and vomiting; reports diarrhea;. Transition of care: patient was not received from another setting of care. Onset of symptoms was October 30, 2018. Risk Assessment: Do you want to hurt yourself or someone else? Patient reports no desire to harm self or others. Initial Sepsis Screen: Does the patient meet any 2 criteria? No. Patient's initial sepsis screen is negative. Does the patient have a suspected source of infection? No. Patient's initial sepsis screen is negative. Care prior to arrival: None. 18:37 Method Of Arrival: Ambulatory 18:37 Acuity: HALLEY 3 Triage Assessment: 18:38 General: Appears in no apparent distress. uncomfortable, Behavior is calm, cooperative, hj appropriate for age. Pain: Complains of pain in abdomen. GI: Reports upper abdominal pain, diarrhea, nausea, vomiting. 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 - Social history:: Smoking status: Patient/guardian denies using tobacco, Patient/guardian denies using alcohol. - Ebola Screening: : Patient negative for fever greater than or equal to 101.5 degrees Fahrenheit, and additional compatible Ebola Virus Disease symptoms Patient denies exposure to infectious person Patient denies travel to an Ebola-affected area in the 21 days before illness onset. Screenin:39 Abuse screen: Denies threats or abuse. Denies injuries from another. Nutritional hj screening: No deficits noted. Tuberculosis screening: No symptoms or risk factors identified. Fall Risk None identified. Assessment: 18:39 GI: Bowel sounds present X 4 quads. hj 20:20 General: Appears in no apparent distress. uncomfortable, Behavior is calm, cooperative. mg2 Pain: Complains of pain in abdomen Pain does not radiate. Pain currently is 5 out of 10 on a pain scale. Quality of pain is described as aching, Pain began gradually, Is intermittent. Neuro: Level of Consciousness is awake, alert, obeys commands, Oriented to person, place, time, situation. Cardiovascular: Capillary refill < 3 seconds Patient's skin is warm and dry. Respiratory: Airway is patent Respiratory effort is even, unlabored, Respiratory pattern is regular, symmetrical. GI: Reports lower abdominal pain, upper abdominal pain, diarrhea, vomiting. : Urine is clear. EENT: No signs and/or symptoms were reported regarding the EENT system. Derm: Skin is intact, is healthy with good turgor, Skin is pink, warm \T\ dry. normal. Musculoskeletal: Circulation, motion, and sensation intact. Capillary refill < 3 seconds. 20:22 Reassessment: patient sent to ct scan. mg2 21:41 Reassessment: Patient states feeling better. mg2 22:57 Reassessment: Patient states symptoms have improved. mg2 Vital Signs: 18:39 BP 110 / 73; Pulse 88; Resp 18; Temp 98.1(O); Pulse Ox 100% on R/A; Weight 90.72 kg; hj Height 5 ft. 2 in. (157.48 cm); Pain 8/10; 21:00 BP 115 / 78; Pulse 80; Resp 18; Pulse Ox 100% on R/A; Pain 8/10; mg2 22:58 BP 110 / 74; Pulse 82; Resp 18; Pulse Ox 100% on R/A; Pain 3/10; mg2 23:51 BP 112 / 78; Pulse 80; Resp 18; Pulse Ox 100% on R/A; Pain 2/10; mg2 18:39 Body Mass Index 36.58 (90.72 kg, 157.48 cm) ED Course: 18:35 Patient arrived in ED. mr 18:35 Silvano Whitfield MD is Private Physician. mr 18:38 Triage completed. hj 18:39 Arm band placed on right wrist. hj 18:39 Patient has correct armband on for positive identification. Placed in gown. Bed in low hj position. Call light in reach. Side rails up X 1. 19:05 Georgia [facility] nh 19:05 Herve Benavidez MD is Attending Physician. nh 19:15 Ankit Johnston, KIM is Primary Nurse. mg2 19:38 No provider procedures requiring assistance completed. Inserted saline lock: 20 gauge mg2 in right antecubital area, using aseptic technique. Blood collected. 20:21 CT Abd/Pelvis - W/Contrast In Process Unspecified. EDMS 22:06 Ultrasound completed. Patient tolerated well. aa4 22:07 US Abdomen Limited In Process Unspecified. EDMS 23:51 IV discontinued, intact, bleeding controlled, No redness/swelling at site. Pressure mg2 dressing applied. Administered Medications: 19:37 Drug: NS 0.9% 1000 ml Route: IV; Rate: 1 bolus; Site: right antecubital; mg2 21:42 Follow up: Response: No adverse reaction; IV Status: Completed infusion mg2 20:36 Drug: morphine 4 mg Route: IVP; Site: right antecubital; mg2 21:42 Follow up: Response: No adverse reaction; Marked relief of symptoms mg2 20:36 Drug: Zofran 4 mg Route: IVP; Site: right antecubital; mg2 21:42 Follow up: Response: No adverse reaction; Marked relief of symptoms mg2 21:03 Drug: Bentyl 20 mg Route: IM; Site: right gluteus; mg2 21:42 Follow up: Response: No adverse reaction; Marked relief of symptoms mg2 23:40 Drug: Zofran 4 mg Route: IVP; Site: right antecubital; mg2 23:41 Follow up: Response: No adverse reaction; Medication administered at discharge. mg2 23:41 Drug: morphine 4 mg Route: IVP; Site: right antecubital; mg2 23:41 Follow up: Response: No adverse reaction; Medication administered at discharge. mg2 Outcome: 23:36 Discharge ordered by . nh 23:51 Discharged to home via wheelchair, with family. mg2 23:51 Condition: stable 23:51 Discharge instructions given to patient, family, Instructed on discharge instructions, follow up and referral plans. medication usage, Demonstrated understanding of instructions, follow-up care, medications, Prescriptions given X 2. 23:52 Patient left the ED. mg2 Signatures: Dispatcher [employer] EDOK Georgia Roche FNP [place] [employer] [place] Socorro Wright mr Bianca Lubin aa4 Jose Sams, KIM RN hj Ankit Johnston RN RN mg2 Corrections: (The following items were deleted from the chart) 18:42 18:39 Pulse 88bpm; Resp 18bpm; Pulse Ox 100% RA; Temp 98.1F Oral; 90.72 kg; Height 5 hj ft. 2 in.; BMI: 36.5; Pain 8/10; hj 23:51 21:00 BP 112 / 78; Pulse 80bpm; Resp 18bpm; Pulse Ox 100% RA; Pain 2/10; mg2 mg2
--- NOTE | 2018-10-31 07:59 | RAD REPORT ---
EXAM DESCRIPTION: US - Abdomen Exam Limited - 10/30/2018 10:08 pm CLINICAL HISTORY: Abdominal pain. Elevated liver function test enzymes COMPARISON: 2014 ultrasound FINDINGS: The gallbladder has been removed. . The biliary tree is normal caliber. 1.3 centimeter echogenic structure is present within the right lobe of the liver. IMPRESSION: Cholecystectomy 1.3 centimeter echogenic structure within the right lobe of the liver may represent hemangioma. [facility] ultrasound in 3 months recommended for re-evaluation
--- NOTE | 2018-11-01 10:14 | EKG ---
Test Date: 2018-10-30 Test Time: 20:54:58 Instructional Facilitator: MG MEASUREMENT RESULTS: Intervals: Rate: 92 LA: 126 QRSD: 74 QT: 372 QTc: 460 [place]: P: 60 LA: 126 QRS: 35 T: 46 INTERPRETIVE STATEMENTS: Normal sinus rhythm Normal ECG Compared to ECG 02/19/2018 01:36:56 Sinus arrhythmia no longer present Electronically Signed On 11-01-18 10:12:39 MARKLOGIC DEVELOPER by Demetrius Holland
== END 2018-10-30 23:52 | disposition home or self-care (01) ==
LOC: ER 18:32
DX: R10.2 Pelvic and perineal pain (principal)
CPT/HCPCS: 36415; 74177; 76705; 80048; 80076; 81003; 81015; 81025; 83690; 85025; 87086; 87088; 93005; 96361; 96372; 96374; 96375; 99284; J0500; J2405; J7030; Q9967